=== PATIENT | female | born 1985 | race Caucasian/White ===

== ENCOUNTER 2022-11-11 05:35 | Emergency (ER) | payer OTHER, SELFPAY ==
[2022-11-11 05:43] VITALS: BP 145/100; PULSE 105; RESP 16; TEMP 36.8; O2SAT 99; BMI 43.6
--- NOTE | 2022-11-11 06:09 | US_ITS ---
[address] [address] Patient Name: JAI VAZQUEZ MRN: [id number] date: 1985 Sex: F Assigned Patient Location: ED.MAIN Current Patient Location: ER Accession/Order Number: [id number] Exam Date: 11/11/2022 06:50 Report Date: 11/11/2022 08:00 At the request of: CELIA MORIN Procedure: US OB <= 14 weeks fetus PROCEDURE: US OB <= 14 weeks fetus, 11/11/2022 6:50 AM EDT CLINICAL INDICATIONS: Encounter for first trimester , postcoital vaginal bleeding for one day, 2 para 1 Expected gestational age: 10 weeks 0 days Expected FREDY: 06/09/2023 COMPARISON: None TECHNIQUE: Transvaginal first trimester obstetric sonogram, grayscale and color assessment. FINDINGS: Uterus: A single intrauterine is identified. Gestational saclike structure is identified within the lower uterine segment. Embryonic pole is seen. Cardiac activity could not be confirmed by sonographic surveillance, grayscale color or M-mode Doppler interrogation. Mean gestational sac size: 2.02 cm, 6 weeks 4 days crown-rump length: 0.96 cm. 7 weeks 0 days. Sonographic gestational age: 6 weeks 6 days +/- days Sonographic FREDY 07/01/2023 Perigestational hemorrhage is not evident. A focal uterine abnormality is not evident. Significant pelvic free fluid is not evident. Normal maternal ovaries could not be demonstrated. Active peristaltic bowel is noted in the region. IMPRESSION: 1. Nonviable failed first trimester with incomplete spontaneous . A single intrauterine is identified in the lower uterine segment. Embryonic pole is 0.96 cm, 7 weeks 0 day gestation is seen without cardiac activity. This meets criteria for nonviable . Normal yolk sac is not evident. 2. No perigestational hemorrhage 3. No focal uterine abnormality 4. Nonvisualization maternal ovaries bilaterally. Active peristaltic bowel is noted in the region. Electronically authenticated by: MARCK LAM Date: 11/11/2022 08:00
--- NOTE | 2022-11-11 06:13 | ED.PREGNANC1 ---
HPI - General Chief complaint: Vaginal Bleeding Stated complaint: SPOTTING IN PREG 10 WEEKS Time Seen by Provider: 11/11/22 06:00 Source: patient Mode of arrival: walk-in Limitations: no limitations History of Present Illness HPI Narrative: recently had an US through [facility] that showed she was about 10 weeks with FREDY 06/09/23 despite LMP at 08/21/22. She had intercourse last night and noted some spotting on the tissue paper afterward. She went to sleep and then saw more spotting on the tissue paper this morning so she came to the ED for evaluation. She denied any vaginal or pelvis pain or cramping. No recent urinary symptoms. No fever or chills. No flank pain. Related Data Home Medications Medication Instructions Recorded Confirmed levothyroxine 112 mcg tablet mcg 11/11/22 metformin 500 mg tablet,extended mg PO 11/11/22 release 24 hr Allergies Allergy/AdvReac Type Severity Reaction Status Date / Time No Known Drug Allergies Allergy Verified 11/11/22 05:51 Exam Narrative Exam Narrative: Nurses notes and vital signs reviewed and patient is not hypoxic. afebrile General: Well-appearing and in no apparent distress. Skin: Warm, dry, no pallor noted. No rash. Head: Normocephalic, atraumatic. Eye: Pupils are equal, round and EOMI. No scleral icterus. Cardiovascular: Regular Rate and Rhythm without murmur, gallop or rub. Respiratory: No accessory muscle use or respiratory distress. Lungs are clear to auscultation, no wheezing, rales or rhonchi Musculoskeletal: normal ROM, no lower extremity edema/swelling GI: Abdomen is soft, non-distended. Normal bowel sounds. No tenderness to palpation. No rebound, guarding, or rigidity noted. Neurological: A&O x4. No cranial nerve dysfunction observed. No truncal ataxia. Moves all extremities. Sensation intact. Psychiatric: Cooperative and interactive. Normal mood and affect. Constitutional Vital Signs - 24 hr 11/11/22 05:43 Temperature 98.3 F Pulse Rate [Monitor] 105 H Respiratory Rate 16 Blood Pressure [Right Arm] 145/100 H Pulse Oximetry 99 Oxygen Delivery Method Room Air Course Vital Signs Vital signs: Vital Signs Temperature 98.3 F 11/11/22 05:43 Pulse Rate 105 H 11/11/22 05:43 Respiratory Rate 16 11/11/22 05:43 Blood Pressure 145/100 H 11/11/22 05:43 Pulse Oximetry 99 11/11/22 05:43 Oxygen Delivery Method Room Air 11/11/22 05:43 Temperature 98.3 F 11/11/22 05:43 Pulse Rate 105 H 11/11/22 05:43 Respiratory Rate 16 11/11/22 05:43 Blood Pressure 145/100 H 11/11/22 05:43 Pulse Oximetry 99 11/11/22 05:43 Oxygen Delivery Method Room Air 11/11/22 05:43 MDM - OB/Uterine Contractions MDM Narrative Medical decision making narrative: The patient experienced vaginal spotting after intercourse. She is about 10 weeks . blood and urine ordered to be obtained and sent to the lab for testing. Pelvic US also ordered and the tech will be paged and come in from home to perform the exam. Patient will be signed out to Dr Golden at 7am shift change to review these results and determine disposition. Large blood and trace Leuks on UA - bleeding may be from the urine sample. Plan will be for the patient to follow up with her [facility] OB regardless of our findings since 10 weeks is too early for any kind of intervention. Patient made aware of this. Lab Data Attestation: I reviewed the patient's lab results. Labs: Lab Results 11/11/22 Range/Units 06:30 WBC 12.4 H (4.0-11.0) 10^3/uL RBC 4.88 (4.20-5.40) 10^6/uL Hgb 14.1 (12.0-16.0) g/dL Hct 41.3 (36.0-48.0) % MCV 84.6 (81.0-99.0) fL MCH 28.9 (26.7-34.0) pg MCHC 34.1 (29.9-35.2) g/dL RDW 14.6 (11.0-15.0) % Plt Count 379 (150-450) 10^3/uL MPV 9.8 (9.5-13.5) fL Neut % (Auto) 55.6 (43.0-75.0) % Lymph % (Auto) 33.9 (20.5-60.0) % [place] % (Auto) 7.3 (1.7-12.0) % Eos % (Auto) 2.5 (0.9-7.0) % Baso % (Auto) 0.5 (0.2-2.0) % Neut # (Auto) 6.9 H (1.4-6.5) 10^3/uL Lymph # (Auto) 4.2 H (1.2-3.8) 10^3/uL [place] # (Auto) 0.9 H (0.3-0.8) 10^3/uL Eos # (Auto) 0.3 (0.0-0.7) 10^3/uL Baso # (Auto) 0.1 (0.0-0.1) 10^3/uL Abs Immat Gran (auto) 0.03 (0.00-0.03) 10^3/uL Imm/Tot Granulo (auto) 0.2 (0.0-0.5) % Urine Color Yellow (YELLOW) Urine Clarity Clear (CLEAR) Urine pH 6.0 (5.0-9.0) Ur Specific [place] <=1.005 A (1.005-1.025) Urine Protein 30 A (NEG/TRACE) mg/dL Urine Glucose (UA) Negative (NEGATIVE) mg/dL Urine Ketones Negative (NEGATIVE) mg/dL Urine Occult Blood Large A (NEGATIVE) Urine Nitrite Negative (NEGATIVE) Urine Bilirubin Negative (NEGATIVE) Urine Urobilinogen 0.2 (0.2-1.0) EU/dL Ur Leukocyte Esterase Trace A (NEGATIVE) Discharge Plan Discharge Chief Complaint: Vaginal Bleeding Clinical Impression: Vaginal bleeding affecting early Prescriptions / Home Meds: No Action metformin 500 mg tablet extended release 24 hr PO levothyroxine 112 mcg tablet Referrals: Physician,Non-Staff, [Primary Care Provider] - 1 week
--- NOTE | 2022-11-11 06:17 | PC.NURSE ---
Pt presents to ER for intermittent vaginal bleeding during Pt sttaes this started yesterday immediately after having intercourse Pt states that since then she is noticing the blood is more bright and plentiful, now noted in the toilet and her panties, not only when she is wiping Pt denies N/V/D and cramping Pt states she is 10 weeks , has recently had a US done that showed a healthy Pt's previous was 13 years ago Pt give a urine cup and directed to change into a gown
--- NOTE | 2022-11-11 06:36 | PC.NURSE ---
UA obtained Pt's urine dark pink in color IV started, pt gowned and given a warm blanket
[2022-11-11 06:43] LABS: Bilirubin Urine NEGATIVE (NEGATIVE); Blood Urine LARGE (NEGATIVE); Clarity Urine CLEAR (CLEAR); Color Urine YELLOW (YELLOW); Glucose Urine UA NEGATIVE (NEGATIVE); Ketones Urine NEGATIVE (NEGATIVE); Leukocyte Esterase Urine TRACE (NEGATIVE); Nitrite Urine NEGATIVE (NEGATIVE); Protein Urine 30 mg/dL (NEG/TRACE); Specific Gravity Urine <=1.005 (1.005-1.025); Urobilinogen Urine 0.2 EU/dL (0.2-1.0)
[2022-11-11 06:44] LABS: Basophils Absolute Auto 0.1 10^3/uL (0.0-0.1); Basophils Percent Auto 0.5 % (0.2-2.0); Eosinophils Absolute Auto 0.3 10^3/uL (0.0-0.7); Eosinophils Percent Auto 2.5 % (0.9-7.0); Hematocrit 41.3 % (36.0-48.0); Hemoglobin 14.1 g/dL (12.0-16.0); Immature Granulocytes Abs Auto 0.03 10^3/uL (0.00-0.03); Immature Granulocytes Pct Auto 0.2 % (0.0-0.5); Lymphocytes Absolute Auto 4.2 10^3/uL (1.2-3.8); Lymphocytes Percent Auto 33.9 % (20.5-60.0); Mean Corpuscular HGB Conc 34.1 g/dL (29.9-35.2); Mean Corpuscular Hemoglobin 28.9 pg (26.7-34.0); Mean Corpuscular Volume 84.6 fL (81.0-99.0); Mean Platelet Volume 9.8 fL (9.5-13.5); Monocytes Absolute Auto 0.9 10^3/uL (0.3-0.8); Monocytes Percent Auto 7.3 % (1.7-12.0); Neutrophils Absolute Auto 6.9 10^3/uL (1.4-6.5); Neutrophils Percent Auto 55.6 % (43.0-75.0); Platelet Count 379 10^3/uL (150-450); Red Blood Count 4.88 10^6/uL (4.20-5.40); Red Cell Distribution Width 14.6 % (11.0-15.0); Urine Microscopic Indicated YES; White Blood Count 12.4 10^3/uL (4.0-11.0)
[2022-11-11 06:49] LABS: Bacteria Urine TRACE #/HPF (NONE SEEN); Mucus Urine NONE SEEN (NONE SEEN); RBC Urine 20-50 #/HPF (0-2); Squamous Epithelial Cell Urine FEW #/LPF (NONE/RARE); WBC Urine 0-2 #/HPF (NONE SEEN)
[2022-11-11 06:50] LABS: Cast Seen? NONE SEEN #/LPF (NONE SEEN); Crystals Seen? None Seen #/HPF (None Seen); Urine Culture Indicated NO
--- NOTE | 2022-11-11 06:57 | PC.NURSE ---
to ultrasound at this time
[2022-11-11 06:58] LABS: Alanine Aminotransferase 49 U/L (14-59); Albumin Globulin Ratio 0.7; Albumin Level 3.5 g/dL (3.4-5.0); Alkaline Phosphatase 58 U/L (46-116); Anion Gap 17.5; Aspartate Amino Transferase 32 U/L (15-37); BUN Creatinine Ratio 10.5; Bilirubin Total 0.3 mg/dL (0.2-1.0); Carbon Dioxide 21.9 mmol/L (21.0-32.0); Chloride 102 mmol/L (98-107); Estimated GFR (African America >60 (>=60); Estimated GFR (Non-African Ame >60 (>=60); Globulin 4.8 g/dL; Glucose 98 mg/dL (74-106); Potassium 3.4 mmol/L (3.5-5.1); Sodium 138 mmol/L (136-145); Total Protein 8.3 g/dL (6.4-8.2)
[2022-11-11 07:32] VITALS: BP 147/108; PULSE 103; RESP 18; O2SAT 98
[2022-11-11 07:37] LABS: HCG Quantitative 3411 mIU/mL
[2022-11-11 08:56] VITALS: BP 118/88; PULSE 104; RESP 18; O2SAT 98
--- NOTE | 2022-11-11 09:14 | ED.PREGNANC1 ---
HPI - General Chief complaint: Vaginal Bleeding Stated complaint: SPOTTING IN PREG 10 WEEKS Time Seen by Provider: 11/11/22 06:00 Source: patient Mode of arrival: walk-in Limitations: no limitations History of Present Illness HPI Narrative: Please see Dr. Chisholm's full H and P Related Data Home Medications Medication Instructions Recorded Confirmed levothyroxine 112 mcg tablet mcg 11/11/22 metformin 500 mg tablet,extended mg PO 11/11/22 release 24 hr Allergies Allergy/AdvReac Type Severity Reaction Status Date / Time No Known Drug Allergies Allergy Verified 11/11/22 05:51 Exam Constitutional Vital Signs - 24 hr 11/11/22 05:43 11/11/22 07:32 11/11/22 08:56 Temperature 98.3 F Pulse Rate 103 H 104 H Pulse Rate [Monitor] 105 H Respiratory Rate 16 18 18 Blood Pressure 147/108 H 118/88 H Blood Pressure [Right Arm] 145/100 H Pulse Oximetry 99 98 98 Oxygen Delivery Method Room Air Course Vital Signs Vital signs: Vital Signs Temperature 98.3 F 11/11/22 05:43 Pulse Rate 105 H 11/11/22 05:43 Respiratory Rate 16 11/11/22 05:43 Blood Pressure 145/100 H 11/11/22 05:43 Pulse Oximetry 99 11/11/22 05:43 Oxygen Delivery Method Room Air 11/11/22 05:43 Temperature 98.3 F 11/11/22 05:43 Pulse Rate 104 H 11/11/22 08:56 Respiratory Rate 18 11/11/22 08:56 Blood Pressure 118/88 H 11/11/22 08:56 Pulse Oximetry 98 11/11/22 08:56 Oxygen Delivery Method Room Air 11/11/22 05:43 MDM - OB/Uterine Contractions MDM Narrative Medical decision making narrative: ultrasound per radiologist shows miscarriage. Findings are discussed with the patient and she'll call her REHAB TRAINER in the morning. Blood type is A negative and she was administered throat exam. Lab Data Attestation: I reviewed the patient's lab results. Labs: Lab Results 11/11/22 11/11/22 11/11/22 Range/Units 06:30 06:44 06:50 WBC 12.4 H (4.0-11.0) 10^3/uL RBC 4.88 (4.20-5.40) 10^6/uL Hgb 14.1 (12.0-16.0) g/dL Hct 41.3 (36.0-48.0) % MCV 84.6 (81.0-99.0) fL MCH 28.9 (26.7-34.0) pg MCHC 34.1 (29.9-35.2) g/dL RDW 14.6 (11.0-15.0) % Plt Count 379 (150-450) 10^3/uL MPV 9.8 (9.5-13.5) fL Neut % (Auto) 55.6 (43.0-75.0) % Lymph % (Auto) 33.9 (20.5-60.0) % [place] % (Auto) 7.3 (1.7-12.0) % Eos % (Auto) 2.5 (0.9-7.0) % Baso % (Auto) 0.5 (0.2-2.0) % Neut # (Auto) 6.9 H (1.4-6.5) 10^3/uL Lymph # (Auto) 4.2 H (1.2-3.8) 10^3/uL [place] # (Auto) 0.9 H (0.3-0.8) 10^3/uL Eos # (Auto) 0.3 (0.0-0.7) 10^3/uL Baso # (Auto) 0.1 (0.0-0.1) 10^3/uL Abs Immat Gran (auto) 0.03 (0.00-0.03) 10^3/uL Imm/Tot Granulo (auto) 0.2 (0.0-0.5) % Sodium 138 (136-145) mmol/L Potassium 3.4 L (3.5-5.1) mmol/L Chloride 102 (98-107) mmol/L Carbon Dioxide 21.9 (21.0-32.0) mmol/L Anion Gap 17.5 BUN 9.0 (7.0-18.0) mg/dL Creatinine 0.86 (0.55-1.02) mg/dL Est GFR ( Amer) >60 (>=60) Est GFR (Non-Af Amer) >60 (>=60) BUN/Creatinine Ratio 10.5 Glucose 98 (74-106) mg/dL Calcium 9.0 (8.5-10.1) mg/dL Total Bilirubin 0.3 (0.2-1.0) mg/dL AST 32 (15-37) U/L ALT 49 (14-59) U/L Alkaline Phosphatase 58 (46-116) U/L Total Protein 8.3 H (6.4-8.2) g/dL Albumin 3.5 (3.4-5.0) g/dL Globulin 4.8 g/dL Albumin/Globulin Ratio 0.7 HCG, Quant 3411 mIU/mL Urine Color Yellow (YELLOW) Urine Clarity Clear (CLEAR) Urine pH 6.0 (5.0-9.0) Ur Specific [place] <=1.005 A (1.005-1.025) Urine Protein 30 A (NEG/TRACE) mg/dL Urine Glucose (UA) Negative (NEGATIVE) mg/dL Urine Ketones Negative (NEGATIVE) mg/dL Urine Occult Blood Large A (NEGATIVE) Urine Nitrite Negative (NEGATIVE) Urine Bilirubin Negative (NEGATIVE) Urine Urobilinogen 0.2 (0.2-1.0) EU/dL Ur Leukocyte Esterase Trace A (NEGATIVE) Urine RBC 20-50 A (0-2) #/HPF Urine WBC 0-2 A (NONE SEEN) #/HPF Ur Squamous Epith Cells Few A (NONE/RARE) #/LPF Urine Crystals None seen (None Seen) #/HPF Urine Bacteria Trace A (NONE SEEN) #/HPF Urine Casts None seen (NONE SEEN) #/LPF Urine Mucus None seen (NONE SEEN) Ur Culture Indicated? No Blood Type 11/11/22 Range/Units 08:12 WBC (4.0-11.0) 10^3/uL RBC (4.20-5.40) 10^6/uL Hgb (12.0-16.0) g/dL Hct (36.0-48.0) % MCV (81.0-99.0) fL MCH (26.7-34.0) pg MCHC (29.9-35.2) g/dL RDW (11.0-15.0) % Plt Count (150-450) 10^3/uL MPV (9.5-13.5) fL Neut % (Auto) (43.0-75.0) % Lymph % (Auto) (20.5-60.0) % [place] % (Auto) (1.7-12.0) % Eos % (Auto) (0.9-7.0) % Baso % (Auto) (0.2-2.0) % Neut # (Auto) (1.4-6.5) 10^3/uL Lymph # (Auto) (1.2-3.8) 10^3/uL [place] # (Auto) (0.3-0.8) 10^3/uL Eos # (Auto) (0.0-0.7) 10^3/uL Baso # (Auto) (0.0-0.1) 10^3/uL Abs Immat Gran (auto) (0.00-0.03) 10^3/uL Imm/Tot Granulo (auto) (0.0-0.5) % Sodium (136-145) mmol/L Potassium (3.5-5.1) mmol/L Chloride (98-107) mmol/L Carbon Dioxide (21.0-32.0) mmol/L Anion Gap BUN (7.0-18.0) mg/dL Creatinine (0.55-1.02) mg/dL Est GFR ( Amer) (>=60) Est GFR (Non-Af Amer) (>=60) BUN/Creatinine Ratio Glucose (74-106) mg/dL Calcium (8.5-10.1) mg/dL Total Bilirubin (0.2-1.0) mg/dL AST (15-37) U/L ALT (14-59) U/L Alkaline Phosphatase (46-116) U/L Total Protein (6.4-8.2) g/dL Albumin (3.4-5.0) g/dL Globulin g/dL Albumin/Globulin Ratio HCG, Quant mIU/mL Urine Color (YELLOW) Urine Clarity (CLEAR) Urine pH (5.0-9.0) Ur Specific [place] (1.005-1.025) Urine Protein (NEG/TRACE) mg/dL Urine Glucose (UA) (NEGATIVE) mg/dL Urine Ketones (NEGATIVE) mg/dL Urine Occult Blood (NEGATIVE) Urine Nitrite (NEGATIVE) Urine Bilirubin (NEGATIVE) Urine Urobilinogen (0.2-1.0) EU/dL Ur Leukocyte Esterase (NEGATIVE) Urine RBC (0-2) #/HPF Urine WBC (NONE SEEN) #/HPF Ur Squamous Epith Cells (NONE/RARE) #/LPF Urine Crystals (None Seen) #/HPF Urine Bacteria (NONE SEEN) #/HPF Urine Casts (NONE SEEN) #/LPF Urine Mucus (NONE SEEN) Ur Culture Indicated? Blood Type A Negative Discharge Plan Discharge Chief Complaint: Vaginal Bleeding Clinical Impression: Incomplete Patient Disposition: Home, Self-Care Time of Disposition Decision: 09:11 Condition: Good Prescriptions / Home Meds: No Action metformin 500 mg tablet extended release 24 hr PO levothyroxine 112 mcg tablet Instructions: Miscarriage (ED) Additional Instructions: Call your BUSINESS BANKING RELATIONSHIP MANAGER in the morning. Stand Alone Forms: Portal Instructions Referrals: Physician,Non-Staff, MD [Primary Care Provider] - 1 week
[2022-11-11] MEDS: RHO(D) IMMUNE GLOBULIN 1,500 UNIT SYRINGE 1500 UNIT IM (09:38)
== END 2022-11-11 09:44 | disposition home or self-care (01) ==
PROVIDERS: Emergency Medicine; Emergency Provider Emergency Medicine
DX: O03.4 Incomplete spontaneous abortion without complication (principal); Z67.11 Type A blood, Rh negative; Z79.84 Long term (current) use of oral hypoglycemic drugs; Z79.890 Hormone replacement therapy
CPT/HCPCS: 36415; 76801; 80053; 81003; 81015; 84702; 85025; 86900; 86901; 96372; 99284; J2790